=== PATIENT | female | born 1930 | race Caucasian/White ===

== ENCOUNTER → 2017-01-22 | Outpatient (CLI) | payer MEDICARE, BC ==
[~2017-01-22] MED LIST: ACETAMINOPHEN PO; ALPRAZOLAM; ALPRAZOLAM PO; ASPIRIN PO; ATENOLOL; ATENOLOL PO; AZO; BENTYL20 MG PO; CALCIUM + D 6001 TA1; CALCIUM 500 + D1 TAB PO; CENTRUM SILVER PO; CERTAGEN PO; CIPRO PO; DARVOCET-N 1001 TAB PO; DITROPAN5 MG PO; FIORINAL CAPSUL1 CAP; FLAX SEED OIL1000 MG PO; LIBRAX CAPSULE1 CA1; LIBRAX CAPSULE1 CAP PO; LORTAB 5/500 TA1 TA1 PO; MEDROL4 MG/DOSE- PO; MEVACOR; MEVACOR PO; MEVACOR40 MG PO; MOBIC PO; MULTI VITAMIN1 EACH PO; MULTIVITAMIN1 UDCAP; SKELAXIN PO; STERAPRED5 MG/DOSE1 PO; SYNTHROID; SYNTHROID PO; SYNTHROID88 MCG PO; TENORMIN50 MG PO; VISTARIL PO; ZINC SULFATE; ZINC SULFATE PO
--- NOTE | ~2017-01-22 | US37 ---
[facility] A Service of [facility] & [facility] RADIOLOGY TEXT RESULTS PATIENT: TERRY SAVAGE LOCATION: [facility] : [birth year] UNIT #: [id number] AGE: [address]: Nely Torres MD SEX: F ORDER DR: [id number] [facility] [address] [place], [place] [address] [id number] O MR#: [id number] Acc #: [id number] NAME: TERRY SAVAGE : 1930 SEX: F STUDY DATE/TIME: 01/22/2017 13:56 UNIT: [facility] ROOM: STUDY DESCRIPTION: US Carotid W/Doppler Bilateral Attending Physician: Betito Torres M.D. Referring Physician: Betito Torres M.D. Ordering Physician: Betito Torres M.D. Primary Care Physician: Alan Flynn M.D. MEDICAL IMAGING REPORT This report is preliminary unless electronic signature is present EXAMINATION Bilateral carotid duplex. CLINICAL HISTORY Dizziness x1 year. FINDINGS There is no significant atherosclerosis noted within the right common carotid, internal carotid, and external carotid arteries. There is some mild atherosclerosis noted at the external carotid artery as well as proximal aspect of the internal carotid artery. It appears homogeneous and regular. The right common carotid artery peak velocity is 29 cm/second. The right internal carotid artery peak systolic/end-diastolic velocities are: Proximal 26/11 cm/second, mid 40/14 cm/second, and distal 43/16 cm/second. The right external carotid peak velocity is 41 cm/second and vertebral artery 24 cm/second. The right ICA/CCA ratio is 1.4. There is patent flow seen throughout the left common carotid, internal carotid, and external carotid arteries. There is some mild plaque, which appears irregular lining the common carotid artery as well as proximal internal carotid artery. The left common carotid artery peak velocity is 35 cm/second. The left internal carotid artery peak systolic/end-diastolic velocities are: Proximal 31/17 cm/second, mid 34/16 cm/second, distal 46/14 cm/second. The left external carotid artery peak velocity is 44 cm/second, vertebral artery 27 cm/second. The left ICA/CCA ratio is 1.3. IMPRESSION 1. There is minimal to mild atherosclerosis of the carotid arteries bilaterally, which is not hemodynamically significant by duplex criteria (less than 50%). The velocities are lower than typical ranges, and may be indicative of a cardiac etiology. [facility] A Service of [facility] & [facility] RADIOLOGY TEXT RESULTS PATIENT: TERRY SAVAGE LOCATION: [facility] : [birth year] UNIT #: [id number] AGE: [address]: Nely Torres MD SEX: F ORDER DR: 2. Vertebral flow is antegrade bilaterally. Dictated by... Juan Pablo Henson M.D. THIS IS AN ELECTRONICALLY VERIFIED REPORT Juan Pablo Henson M.D. at 01/26/2017 8:24 AM AC/pc TD: 01/23/2017 09:06 JOB #: [id number] MEDICAL IMAGING REPORT COPY
== END | disposition home or self-care (01) ==
LOC: CNIV 13:27
DX: I48.91 Unspecified atrial fibrillation (principal); I10 Essential (primary) hypertension; R42 Dizziness and giddiness; I65.23 Occlusion and stenosis of bilateral carotid arteries
CPT/HCPCS: 93880

== ENCOUNTER 2017-02-18 15:35 | Emergency (ER) | payer MEDICARE, BC ==
--- NOTE | ~2017-02-18 | EKG ---
PATIENT: TERRY SAVAGE UNIT #: [id number] Ventricular Rate: 60 BPM Atrial Rate: 60 BPM QRS Duration: 154 ms Q-T Interval: 514 ms QTC Calculation(Bezet): 514 ms Calculated R [place]: -82 degrees Calculated T [place]: 82 degrees Diagnosis Line: Ventricular-paced rhythm Diagnosis Line: Abnormal ECG Diagnosis Line: When compared with ECG of 27-FEB-2014 15:07, Diagnosis Line: Electronic ventricular pacemaker has replaced Diagnosis Line: Sinus rhythm Diagnosis Line: Confirmed by MILENA PENA MD ([id number]) on 02/23/2017 Diagnosis Line: 10:25:23 PM INTERPRETING MD: BECKY POWERS
--- NOTE | ~2017-02-18 | CT71 ---
[facility] A Service [facility] RADIOLOGY TEXT RESULTS PATIENT: TERRY SAVAGE LOCATION: [facility] : [birth year] UNIT #: [id number] AGE: [address]: Gabriel Vargas MD SEX: F ORDER DR: [id number] [address] [id number] [facility] [place], [place] [address] [id number] E MR#: [id number] Acc #: [id number] NAME: TERRY SAVAGE : 1930 SEX: F STUDY DATE/TIME: 02/18/2017 14:39 UNIT: [facility] ROOM: STUDY DESCRIPTION: CT Head Wo Contrast Attending Physician: Gabriel Vargas M.D. Ordering Physician: Gabriel Vargas M.D. Primary Care Physician: Alan Flynn M.D. MEDICAL IMAGING REPORT This report is preliminary unless electronic signature is present EXAM CT brain without contrast. DATE OF EXAM 02/18/2017 HISTORY Generalized weakness for 3 days. TECHNIQUE NOTE: This CT exam was performed with one or more of the following radiation dose reduction techniques: automatic exposure control, adjustment of mA and/or kV according to patient size, and iterative reconstruction. FINDINGS CT brain without contrast demonstrates mild generalized cerebral cortical atrophy, and mild chronic ischemic changes in the deep white matter bilaterally. No intracranial hemorrhage, mass or edema. No midline shift or ventricular dilatation or extraaxial fluid collection. IMPRESSION 1. No acute findings. 2. Mild generalized cerebral cortical atrophy and mild chronic ischemic changes in the deep white matter bilaterally. Dictated by... Pierre Wall M.D. THIS IS AN ELECTRONICALLY VERIFIED REPORT Pierre Wall M.D. at 02/19/2017 12:03 AM [facility] A Service [facility] RADIOLOGY TEXT RESULTS PATIENT: TERRY SAVAGE LOCATION: [facility] : [birth year] UNIT #: [id number] AGE: [address]: Gabriel Vargas MD SEX: F ORDER DR: Chidi TD: 02/18/2017 17:02 JOB #: [id number] MEDICAL IMAGING REPORT Page 1 of 1 COPY
[2017-02-18 14:14] LABS: BASOPHIL# 0.1 X10e3 (0-0.3); BASOPHIL% 1.3 % (0-2.5); EOSINOPHIL# 0.1 X10e3 (0-0.7); EOSINOPHIL% 0.7 % (0.0-7.0); HEMATOCRIT 38.5 % (35.0-45.0); LYMPHOCYTE# 1.1 X10e3 (1.0-3.5); LYMPHOCYTE% 15.5 % (17.0-45.0); MEAN CELL VOLUME 84.8 FL (83-96); MEAN CORPUSCULAR HEMOGLOBIN 28.5 PG (28-34); MEAN CORPUSCULAR HGB CONC 33.6 g/dL (30-36); MEAN PLATELET VOLUME 7.2 FL (6.5-11.5); MONOCYTE# 0.5 X10e3 (0-1.0); MONOCYTE% 6.4 % (3.0-12.0); NEUTROPHIL# 5.3 X10e3 (1.5-7.1); NEUTROPHIL% 76.1 % (40-75); PLATELET COUNT 176 X10e3 (140-420); RED BLOOD COUNT 4.54 X10e (3.90-5.30); RED CELL DISTRIBUTION WIDTH 13.8 % (11.0-15.5)
[2017-02-18 14:17] LABS: DIFF IND NO
[2017-02-18 14:20] LABS: POC - CKMB <1.0 ng/mL (0.0-7.9); POC - TROPONIN <0.05 ng/mL (<=0.05)
[2017-02-18 14:33] LABS: URINE SOURCE CLEAN CATCH
[2017-02-18 14:38] LABS: URINE APPEARANCE CLEAR; URINE BILIRUBIN NEG (NEG); URINE BLOOD NEG (NEG); URINE COLOR YELLOW; URINE GLUCOSE NEG (NEG); URINE KETONE NEG (NEG); URINE LEUKOCYTE ESTERASE 2+ (NEG); URINE NITRATE NEG (NEG); URINE PROTEIN NEG (NEG); URINE SPECIFIC GRAVITY 1.008 (1.003-1.035); URINE UROBILINOGEN 0.2 MG/DL (NEG)
[2017-02-18 14:41] LABS: CULTURE INDICATED? YES; U HYALINE CASTS AUWI 0-2 /[LPF]; URBCS1 AUWI 0-2 /[HPF] (0-2); URINE BACTERIA AUWI NEG (NEGATIVE); URINE SQUAMOUS EPITHELIAL CELL NONE SEEN /[HPF]
[2017-02-18 14:43] LABS: BUN/CREATININE RATIO 25.45; CALCIUM SERUM 8.8 mg/dL (8.4-10.2); CREATININE SERUM 1.1 mg/dL (0.6-1.4); GLOM FILT RATE Estimated 44.8 mL/min (>60); POTASSIUM 3.9 mmol/L (3.5-5.1)
== END 2017-02-18 16:20 | disposition home or self-care (01) ==
LOC: CED 15:35
PROVIDERS: Emergency Medicine
DX: M15.9 Polyosteoarthritis, unspecified (principal); I10 Essential (primary) hypertension; Z88.8 Allergy status to other drugs, medicaments and biological substances; Z79.899 Other long term (current) drug therapy
CPT/HCPCS: 36415; 70450; 80048; 81003; 82553; 84484; 85025; 87086; 93005; 99284

== ENCOUNTER → 2017-05-31 | Outpatient (CLI) | payer MEDICARE, BC | END | disposition home or self-care (01) | LOC: CSSDAY 05-24 14:00 | DX: M81.0 Age-related osteoporosis without current pathological fracture (principal); Z79.899 Other long term (current) drug therapy | CPT/HCPCS: 96372; J0897 ==